=== PATIENT | female | born 1950 | race African-American/Black ===

== ENCOUNTER 2018-10-30 09:00 | Outpatient (CLI) | payer OTHER | END 2018-10-30 10:00 | disposition home or self-care (01) | LOC: D.MAMMO 09:00 | PROVIDERS: ATTEND Family Medicine | DX: Z12.31 Encounter for screening mammogram for malignant neoplasm of breast (principal) ==

== ENCOUNTER 2018-12-21 08:00 | Outpatient (CLI) | payer OTHER | END 2018-12-21 09:00 | disposition home or self-care (01) | LOC: D.MAMMO 08:00 | PROVIDERS: ATTEND Family Medicine | DX: R92.8 Other abnormal and inconclusive findings on diagnostic imaging of breast (principal) ==

== ENCOUNTER → 2019-06-08 08:35 | Outpatient (CLI) | payer OTHER | END | disposition home or self-care (01) | LOC: D.US 08:30 | PROVIDERS: ATTEND Internal Medicine Gastroenterology | DX: K76.0 Fatty (change of) liver, not elsewhere classified (principal) ==

== ENCOUNTER 2020-03-31 10:16 | Inpatient (IN) | payer MEDICARE ==
[2020-03-31] VITALS (7 sets, daily range): BP systolic 112–141; BP diastolic 49–69; BMI 31.3
[~2020-03-31] VITALS: Ht 152.4 cm; Wt 72.6 kg
[2020-03-31] MEDS ORDERED: TIROSINT112 MCG PO (10:35)
[2020-03-31] MEDS ORDERED: LANTUS INS100 UNITS/ SC (10:35)
[2020-03-31] MEDS ORDERED: NORVASC10 MG PO (10:36)
[2020-03-31] MEDS ORDERED: ZESTRIL10 MG PO (10:36)
[2020-03-31 10:58] LABS: HEMATOCRIT 39.5 % (36.0-48.0); HEMOGLOBIN 13.4 g/dL (12-16); IMMATURE GRANULOCYTES 0.4 % (0-5); MCH 29.8 pg (26.0-34.0); MCHC 33.9 g/dL (31.0-37.0); MEAN PLATELET VOLUME 10.3 fL (7.4-10.4); PLATELET COUNT 278 10x3/uL (130-400); RBC 4.49 10x6/uL (4.00-5.40); RDW 13.5 % (11.5-14.5); WBC 7.3 10x3/uL (4.8-10.8)
[2020-03-31 11:17] LABS: INR 0.97 (0.85-1.17); PROTIME 12.9 SECONDS (11.6-15.0)
[2020-03-31 11:18] LABS: APTT 31.5 SECONDS (22.8-39.4)
[2020-03-31 11:22] LABS: ALKALINE PHOSPHATASE 113 U/L (30-120); ALT (SGPT) 57 U/L (10-68); BILIRUBIN - TOTAL 0.74 mg/dL (0.2-1.3); CALC OSMOLALITY 261 mosm/kg (275-300); CALCIUM 9.2 mg/dL (8.5-10.1); CARBON DIOXIDE 24.9 mmol/L (21.0-32.0); CHLORIDE - SERUM 91 mmol/L (98-107); CKMB 3.1 U/L (0.0-3.6); CREATININE - SERUM 1.4 mg/dL (0.6-1.3); GLUCOSE 91 mg/dL (74-106); PRO BNP 17 pg/mL (0-125); PROTEIN - SERUM 8.3 g/dL (6.4-8.2); SODIUM 130 mmol/L (136-145); TROPONIN-I < 0.017 ng/mL (0.000-0.060); UREA NITROGEN 15 mg/dL (7-18); eGFR NON AFRICAN AMERICAN 40 mL/min (90-120)
[2020-03-31 11:24] LABS: CREATINE KINASE 915 UL (21-215)
[2020-03-31 11:25] LABS: POTASSIUM - SERUM 2.7 mmol/L (3.5-5.1)
[2020-03-31 12:02] LABS: ANISOCYTOSIS OCC; LYMPHOCYTES 31 % (15-50); MONOCYTES 8 % (2-11); NEUTROPHILS 60 % (40-80); PLATELET ESTIMATE NORMAL
[2020-03-31 12:51] LABS: C-REACTIVE PROTEIN 15.8 mg/dL (0.0-0.9)
--- NOTE | 2020-03-31 14:42 | NUR ---
RECEIVED PT FROM ER VIA WHEELCHAIR. PT AAO AND UP AD [place]. DROPLET ISO FOR COVID. POTASSIUM CHLORIDE INFUSING VIA R.FOR PIV. RR EVEN AND UNLABORED ON 3L 02. VSS AND WNL. PT DENIES ANY NEEDS AT THIS TIME. NO S/S OF DISTRESS NOTED. WILL CTM.
[2020-03-31 18:15] LABS: BILIRUBIN NEGATIVE (NEGATIVE); KETONE SMALL mg/dL (NEGATIVE); NITRITE NEGATIVE (NEGATIVE); UROBILINOGEN NORMAL (NORMAL)
--- NOTE | 2020-03-31 19:30 | NUR ---
PT IN BED, AAO X 3, RESP EVEN AND UNLABORED. NO DISTRESS NOTED, CL IN REACH, SR UP X 2.
--- NOTE | 2020-04-01 00:05 | NUR ---
I have reviewed this patient and I concur with the Shift Assessment completed by the Licensed Practical Nurse today this shift.
[2020-04-01 04:30] VITALS: BP 132/71
[2020-04-01 04:59] LABS: BASOPHILS 0 % (0-2); EOSINOPHILS 0 % (0-7); HEMATOCRIT 36.3 % (36.0-48.0); HEMOGLOBIN 12.1 g/dL (12-16); IMMATURE GRANULOCYTES 0.7 % (0-5); LYMPHOCYTES 18.5 % (15-50); MCH 29.3 pg (26.0-34.0); MCHC 33.3 g/dL (31.0-37.0); MCV 87.9 fL (80.0-100.0); NEUTROPHILS 77.8 % (40-80); PLATELET COUNT 319 10x3/uL (130-400); RBC 4.13 10x6/uL (4.00-5.40); RDW 13.4 % (11.5-14.5); WBC 5.6 10x3/uL (4.8-10.8)
[2020-04-01 05:26] LABS: ANION GAP 14.9 mmol/L (8-16); BILIRUBIN - TOTAL 0.45 mg/dL (0.2-1.3); CALCIUM 8.7 mg/dL (8.5-10.1); CARBON DIOXIDE 26.2 mmol/L (21.0-32.0); MAGNESIUM - SERUM 2.2 mg/dL (1.8-2.4); PROTEIN - SERUM 7.1 g/dL (6.4-8.2)
[2020-04-01 05:27] LABS: POTASSIUM - SERUM 4.1 mmol/L (3.5-5.1)
[2020-04-01 08:45] VITALS: BP 134/71
[2020-04-01 12:39] VITALS: BP 118/59
[2020-04-01 16:38] VITALS: BP 116/65
--- NOTE | 2020-04-01 18:33 | NUR ---
PT LAYING SUPINE, RR EVEN AND UNLABORED ON 2L NC. DENIES NEEDS OR PAIN AT THIS TIME. CALL LIGHT WITHIN REACH. WATER RECIEVED PER REQUEST. BED IN LOWEST POSITION. WILL CONTINUE TO MONITOR.
--- NOTE | 2020-04-01 19:30 | NUR ---
PT IN BED, AAO X 3, RESP EVEN AND UNLABORED. NO DISTRESS NOTED, CL IN REACH.
[2020-04-01 20:00] VITALS: BP 109/48
--- NOTE | 2020-04-02 03:43 | NUR ---
I have reviewed this patient and I concur with the Shift Assessment completed by the Licensed Practical Nurse today this shift.
[2020-04-02 04:00] VITALS: BP 119/58
[2020-04-02 06:43] LABS: BASOPHILS 0.1 % (0-2); EOSINOPHILS 0 % (0-7); HEMATOCRIT 34.9 % (36.0-48.0); HEMOGLOBIN 11.5 g/dL (12-16); IMMATURE GRANULOCYTES 1.5 % (0-5); LYMPHOCYTES 10.7 % (15-50); MCH 29.2 pg (26.0-34.0); MCV 88.6 fL (80.0-100.0); MEAN PLATELET VOLUME 10.8 fL (7.4-10.4); MONOCYTES 8.1 % (2-11); NEUTROPHILS 79.6 % (40-80); PLATELET COUNT 348 10x3/uL (130-400); RBC 3.94 10x6/uL (4.00-5.40); RDW 13.5 % (11.5-14.5)
[2020-04-02 06:46] LABS: WBC 13.8 10x3/uL (4.8-10.8)
[2020-04-02 07:09] LABS: ANION GAP 13.6 mmol/L (8-16); BILIRUBIN - TOTAL 0.24 mg/dL (0.2-1.3); CALCIUM 8.6 mg/dL (8.5-10.1); CARBON DIOXIDE 26.2 mmol/L (21.0-32.0); CREATININE - SERUM 0.9 mg/dL (0.6-1.3); MAGNESIUM - SERUM 2.1 mg/dL (1.8-2.4); POTASSIUM - SERUM 3.8 mmol/L (3.5-5.1); PROTEIN - SERUM 6.7 g/dL (6.4-8.2)
[2020-04-02 08:36] VITALS: BP 120/57
[2020-04-02 12:46] VITALS: BP 110/66
[2020-04-02 15:00] VITALS: BP 101/58
[2020-04-02 21:43] VITALS: BP 124/61
[2020-04-03 00:08] VITALS: BP 118/56
--- NOTE | 2020-04-03 03:53 | NUR ---
I have reviewed this patient and I concur with the Shift Assessment completed by the Licensed Practical Nurse today this shift.
[2020-04-03 04:14] VITALS: BP 113/52
[2020-04-03 06:44] LABS: ALBUMIN 3.2 g/dL (3.4-5.0); BILIRUBIN - TOTAL 0.39 mg/dL (0.2-1.3); CARBON DIOXIDE 27.3 mmol/L (21.0-32.0); POTASSIUM - SERUM 4.3 mmol/L (3.5-5.1); PROTEIN - SERUM 6.9 g/dL (6.4-8.2)
[2020-04-03 06:45] LABS: BASOPHILS 0.1 % (0-2); EOSINOPHILS 0 % (0-7); HEMATOCRIT 34.8 % (36.0-48.0); HEMOGLOBIN 11.6 g/dL (12-16); IMMATURE GRANULOCYTES 4.3 % (0-5); LYMPHOCYTES 11.2 % (15-50); MCH 29.4 pg (26.0-34.0); MCHC 33.3 g/dL (31.0-37.0); MCV 88.3 fL (80.0-100.0); MEAN PLATELET VOLUME 10.8 fL (7.4-10.4); MONOCYTES 5.2 % (2-11); NEUTROPHILS 79.2 % (40-80); PLATELET COUNT 348 10x3/uL (130-400); RBC 3.94 10x6/uL (4.00-5.40); RDW 13.7 % (11.5-14.5); WBC 11.4 10x3/uL (4.8-10.8)
[2020-04-03 07:58] VITALS: BP 126/62
[2020-04-03 11:51] VITALS: BP 119/56
[2020-04-03 15:13] VITALS: BP 128/66
--- NOTE | 2020-04-03 19:30 | NUR ---
RECEIVED REPORT, WILL ASSUME CARE OF PT, PT IS WATCHING TV, DENIES ANY NEEDS, BED IS LOW, SRX2, CALL LIGHT IN REACH, WILL CONTINUE PLAN OF CARE
[2020-04-03 21:40] VITALS: BP 121/67
[2020-04-04] VITALS: BP 132/52
[2020-04-04 04:00] VITALS: BP 132/68
[2020-04-04 05:31] LABS: ALBUMIN 3.4 g/dL (3.4-5.0); BILIRUBIN - TOTAL 0.42 mg/dL (0.2-1.3); CALCIUM 8.9 mg/dL (8.5-10.1); CARBON DIOXIDE 27.9 mmol/L (21.0-32.0); CREATININE - SERUM 0.9 mg/dL (0.6-1.3); MAGNESIUM - SERUM 1.9 mg/dL (1.8-2.4); POTASSIUM - SERUM 4.9 mmol/L (3.5-5.1); PROTEIN - SERUM 7.1 g/dL (6.4-8.2)
[2020-04-04 05:32] LABS: BASOPHILS 0.1 % (0-2); EOSINOPHILS 0 % (0-7); HEMATOCRIT 37.2 % (36.0-48.0); HEMOGLOBIN 12.5 g/dL (12-16); IMMATURE GRANULOCYTES 6.6 % (0-5); LYMPHOCYTES 11.7 % (15-50); MCH 29.6 pg (26.0-34.0); MCHC 33.6 g/dL (31.0-37.0); MCV 87.9 fL (80.0-100.0); MEAN PLATELET VOLUME 10.9 fL (7.4-10.4); MONOCYTES 7.6 % (2-11); PLATELET COUNT 366 10x3/uL (130-400); RBC 4.23 10x6/uL (4.00-5.40); RDW 13.9 % (11.5-14.5)
--- NOTE | 2020-04-04 07:00 | NUR ---
RECIEVED REPORT. ASSUMED CARE OF PATIENT. PATIENT REMAINS IN ISOLATION FOR COVID 19.
[2020-04-04 08:00] VITALS: BP 137/73
--- NOTE | 2020-04-04 08:26 | NUR ---
SPECIAL DIET REQUEST PLACED FOR PATIENT AT THIS TIME.
--- NOTE | 2020-04-04 10:41 | NUR ---
ASSISTED TO TAPE IV SITE UP AT THIS TIME. PATIENT IN SHOWER AT THIS TIME. NO DISTRESS.
--- NOTE | 2020-04-04 11:05 | NUR ---
2ND UNIT OF FFP INITIATED AT THIS TIME. PATIENT TOLERATING TRANSFUSION WELL. NO DISTRESS. PATIENT ALSO GIVEN CELL PHONE THAT WAS BROUGHT AND DROPPED OFF FOR HER. NO DISTRESS.
--- NOTE | 2020-04-04 11:15 | NUR ---
FSBS 367. 16 UNITS HUMALOG ADMINISTERED PER SLIDING SCALE.
--- NOTE | 2020-04-04 12:12 | NUR ---
PATIENT TRANSFUSION COMPLETE. VSS. TOLERATED PLASMA TRANSFUSION WELL. 121/62, 80. CALL LIGHT WITHIN REACH. NO DISTRESS.
--- NOTE | 2020-04-04 12:18 | NUR ---
TELEMETRY REAPPLIED AT THIS TIME. NO DISTRESS.
--- NOTE | 2020-04-04 12:51 | NUR ---
INCENTIVE SPIROMETER PROVIDED TO PATIENT AND INSTRUCTIONS ON USE. VERBALIZED UNDERSTANDING OF ALL INSTRUCTIONS.
[2020-04-04 15:00] VITALS: BP 117/59
--- NOTE | 2020-04-04 16:05 | NUR ---
FSBS 198. 8 UNITS HUMALOG ADMINISTERED PER SLIDING SCALE. NO DISTRESS.
--- NOTE | 2020-04-04 19:00 | NUR ---
REPORT RECEIVED, WILL CONTINUE POC. PATIENT IS AAOX4, SITTING UP IN BED. NO S/S OF DISTRESS OBSERVED, RR EVEN AND UNLABORED ON ROOM AIR. PIV TO RT FA, PATENT, INFUSING NS 40KCL. PATIENT DENIES NEEDS AT THIS TIME. CL IN REACH, BED LOCKED AND LOWERED. COVID19 PRECAUTIONS MAINTAINTED. WILL CTM.
[2020-04-04 20:00] VITALS: BP 126/52
[2020-04-05] VITALS: BP 124/61
[2020-04-05 04:00] VITALS: BP 140/72
[2020-04-05 06:31] LABS: BASOPHILS 0.1 % (0-2); EOSINOPHILS 0 % (0-7); HEMATOCRIT 38.2 % (36.0-48.0); HEMOGLOBIN 12.9 g/dL (12-16); IMMATURE GRANULOCYTES 6.5 % (0-5); LYMPHOCYTES 20.5 % (15-50); MCH 29.7 pg (26.0-34.0); MCHC 33.8 g/dL (31.0-37.0); MEAN PLATELET VOLUME 10.7 fL (7.4-10.4); MONOCYTES 9.8 % (2-11); NEUTROPHILS 63.1 % (40-80); PLATELET COUNT 390 10x3/uL (130-400); RBC 4.34 10x6/uL (4.00-5.40); RDW 13.9 % (11.5-14.5); WBC 13.5 10x3/uL (4.8-10.8)
[2020-04-05 06:59] LABS: ALBUMIN 3.6 g/dL (3.4-5.0); ANION GAP 11.3 mmol/L (8-16); BILIRUBIN - TOTAL 0.34 mg/dL (0.2-1.3); CALCIUM 9.3 mg/dL (8.5-10.1); MAGNESIUM - SERUM 2.2 mg/dL (1.8-2.4); POTASSIUM - SERUM 4.3 mmol/L (3.5-5.1); PROTEIN - SERUM 7.3 g/dL (6.4-8.2)
[2020-04-05 07:48] VITALS: BP 111/61
[2020-04-05 10:27] VITALS: BP 140/80
[2020-04-05 13:54] VITALS: Ht 152.4 cm; Wt 72.6 kg
[2020-04-05 15:15] VITALS: BP 121/67
[2020-04-05 20:00] VITALS: BP 128/66
--- NOTE | 2020-04-05 20:00 | NUR ---
REPORT RECEIVED, WILL CONT POC. PT UP IN BED A&O. NO S/S OF DISTRESS. PT REPORTS "FEELING MUCH BETTER TODAY". RR EVEN AND UNLABORED ON RA. REQUESTS WATER, JELLO, AND CRACKERS, BROUGHT TO BEDSIDE. PT DENIES OTHER NEEDS AT THIS TIME. CALL LIGHT IN REACH, BED LOCKED AND LOWERED. ASSESSMENT COMPLETED AT THIS TIME. WILL CONT TO MONITOR.
[2020-04-06 04:00] VITALS: BP 136/69
[2020-04-06 07:01] LABS: HEMATOCRIT 37.4 % (36.0-48.0); HEMOGLOBIN 12.5 g/dL (12-16); LYMPHOCYTES 13.7 % (15-50); MCH 29.8 pg (26.0-34.0); MCHC 33.4 g/dL (31.0-37.0); MCV 89.3 fL (80.0-100.0); MEAN PLATELET VOLUME 10.7 fL (7.4-10.4); PLATELET COUNT 315 10x3/uL (130-400); RBC 4.19 10x6/uL (4.00-5.40); RDW 14.5 % (11.5-14.5); WBC 12.6 10x3/uL (4.8-10.8)
[2020-04-06 07:18] VITALS: BP 125/62
[2020-04-06 07:27] LABS: ALBUMIN 3.3 g/dL (3.4-5.0); ANION GAP 14.4 mmol/L (8-16); BILIRUBIN - TOTAL 0.52 mg/dL (0.2-1.3); CALCIUM 9.1 mg/dL (8.5-10.1); CARBON DIOXIDE 26.4 mmol/L (21.0-32.0); POTASSIUM - SERUM 4.8 mmol/L (3.5-5.1); PROTEIN - SERUM 6.8 g/dL (6.4-8.2)
[2020-04-06 10:39] VITALS: BP 126/65
[2020-04-06] MEDS ORDERED: OMNICEF300 MG PO (14:22)
[2020-04-06] MEDS ORDERED: DECADRON4 MG PO (14:22)
[2020-04-06] MEDS ORDERED: MUCINEX DM ER1 EAC1 PO (14:22)
[2020-04-06] MEDS ORDERED: TESSALON PERLE100 MG PO (14:22)
[2020-04-06] MEDS ORDERED: ALBUTEROL SULF8.5 GM INH (14:23)
--- NOTE | 2020-04-06 15:02 | MORECARE ---
CASE MANAGEMENT DISCHARGE SUMMARY PATIENT: JENNIE HINSON UNIT: [id number] ADM DATE: 03/31/20 AGE: 70 : 52 SEX: F ROOM/BED: D.2133 AUTHOR: ANUPAMA MCCRACKEN PHYSICIAN: REFERRING PHYSICIAN: GIUSEPPE GOMEZ DO DATE OF SERVICE: 04/06/20 Discharge Plan Patient Name: JENNIE HINSON [facility] [facility] 1950 Planned Disposition: Home Anticipated Discharge Date: 04/06/20 Discharge Date: Expected LOS: 6 Initial Reviewer: [email or web address] Initial Review Date: 03/31/2020 Generated: 04/06/20 4:01 pm Patient Name: JENNIE HINSON Page [phone] at 1502 All edits/amendments must be made on the electronic document DICTATION DATE: 04/06/20 1501 NEEDLE VALVE OPERATOR: CANDE 04/06/20 1501 RPT#: [id number] DC DATE: STATUS: ADM IN [facility] [address] [place] [address] END OF REPORT
--- NOTE | 2020-04-06 16:00 | MORECARE ---
CASE MANAGEMENT DISCHARGE SUMMARY PATIENT: JENNIE HINSON UNIT: [id number] ADM DATE: 03/31/20 AGE: 70 : 52 SEX: F ROOM/BED: D.2133 AUTHOR: ANUPAMA MCCRACKEN PHYSICIAN: REFERRING PHYSICIAN: GIUSEPPE GOMEZ DO DATE OF SERVICE: 04/06/20 Discharge Plan Patient Name: JENNIE HINSON [facility] : 1950 Planned Disposition: Home Anticipated Discharge Date: 04/06/20 Discharge Date: Expected LOS: 6 Initial Reviewer: [email or web address] Initial Review Date: 03/31/2020 Generated: 04/06/20 4:59 pm DCPIA - Discharge Planning Initial Assessment Updated by [email or web address]: Dianne Funes on 04/06/20 3:54 pm * Is the patient Alert and Oriented? Yes * How many steps to enter\exit or inside your home? 5 w/o rail * PCP Dr. Valencia * Pharmacy [address] * Preadmission Environment Home with Family * ADLs Independent * Equipment None * Other Equipment NA * List name and contact numbers for known caregivers / representatives who currently or will assist patient after discharge: Filippo Hinson (spouse) [phone] * Verbal permission to speak to the caregivers and representatives has been obtained from the patient. Yes * Community resources currently utilized None * Please name any agencies selected above. NA * Additional services required to return to the preadmission environment? No * Can the patient safely return to the preadmission environment? Yes * Has this patient been hospitalized within the prior 30 days at any hospital? No Last DP export: 04/06/20 2:02 pm Patient Name: JENNIE HINSON Page [id number] at 1600 All edits/amendments must be made on the electronic document DICTATION DATE: 04/06/20 1559 MANAGER AVIATION: CANDE 04/06/20 1559 RPT#: [id number] DC DATE: STATUS: ADM IN [facility] [address] [place] [address] END OF REPORT
--- NOTE | 2020-04-06 16:08 | MORECARE ---
CASE MANAGEMENT DISCHARGE SUMMARY PATIENT: JENNIE HINSON UNIT: [id number] ADM DATE: 03/31/20 AGE: 70 : 52 SEX: F ROOM/BED: D.1253 AUTHOR: KAYKAY,DOC PHYSICIAN: REFERRING PHYSICIAN: GIUSEPPE GOMEZ DO DATE OF SERVICE: 04/06/20 Discharge Plan Patient Name: JENNIE HINSON Facility: [facility]:[place] : 1950 Planned Disposition: Home Anticipated Discharge Date: 04/06/20 Discharge Date: Expected LOS: 6 Initial Reviewer: [email or web address] Initial Review Date: 03/31/2020 Generated: 04/06/20 5:08 pm Comments DCP- Discharge Planning Updated by [email or web address]: Dianne Funes on 04/06/20 3:[address] CM met with patient to discuss initial discharge planning. Patient is in agreement to proceed with completion of the assessment. Patient reports that she lives at home independently with her , Filippo Hinson ([phone]. Patient is alert/oriented. Stairs/steps: 5 w/rails. PCP: Dr. Valencia. Pharmacy: [address] Patient states she has been able to obtain all of her prescribed medications. HHS: Declined. DME: None. Patient gives permission to speak with family members/care givers. Patient is Independent with all ADL's, medication management JEWELRY RACKER. CM discussed the availability of HH, Rehab, SNF, OP Therapy, DME services. Patient denies the need for additional services at this time and feels safe returning to previous environment. Patient denies hospitalization within the past 30 days. Patient denies the use of community resources JEWELRY RACKER. Transportation at time of discharge: Filippo Hinson. CM will assist PRN with any DC needs/plans. DCPIA - Discharge Planning Initial Assessment Updated by [email or web address]: Dianne Funes on 04/06/20 3:54 pm * Is the patient Alert and Oriented? Yes * How many steps to enter\exit or inside your home? 5 w/o rail * PCP Dr. Valencia * Pharmacy [address] * Preadmission Environment Home with Family * ADLs Independent * Equipment None * Other Equipment NA * List name and contact numbers for known caregivers / representatives who currently or will assist patient after discharge: Filippo Hinson (spouse) [phone] * Verbal permission to speak to the caregivers and representatives has been obtained from the patient. Yes * Community resources currently utilized None * Please name any agencies selected above. NA * Additional services required to return to the preadmission environment? No * Can the patient safely return to the preadmission environment? Yes * Has this patient been hospitalized within the prior 30 days at any hospital? No Last DP export: 04/06/20 3:00 pm Patient Name: JENNIE HINSON Page [phone] at 1608 All edits/amendments must be made on the electronic document DICTATION DATE: 04/06/201607 INCOME TAX PREPARER: CANDE 04/06/201607 RPT#: [id number] DC DATE: STATUS: ADM IN [facility] [address] [place] [address] END OF REPORT
--- NOTE | 2020-04-06 16:53 | NUR ---
PATIENT DISCHARGE INSTRUCTIONS DISCUSSED WITH HER AND QUESTIONS ANSWERED, TO EXIT VIA WHEELCHAIR TO DISCHARGE HOME WITH .
--- NOTE | 2020-04-06 17:07 | MORECARE ---
CASE MANAGEMENT DISCHARGE SUMMARY PATIENT: JENNIE HINSON UNIT: [id number] ADM DATE: 03/31/20 AGE: 70 : 52 SEX: F ROOM/BED: D.1343 AUTHOR: KAYKAY,DOC PHYSICIAN: REFERRING PHYSICIAN: GIUSEPPE GOMEZ DO DATE OF SERVICE: 04/06/20 Discharge Plan Patient Name: JENNIE HINSON Facility: [facility]:[place] : 1950 Planned Disposition: Home Anticipated Discharge Date: 04/06/20 Discharge Date: 04/06/2020 Expected LOS: 6 Initial Reviewer: [email or web address] Initial Review Date: 03/31/2020 Generated: 04/06/20 6:07 pm Comments DCP- Discharge Planning Updated by [email or web address]: Dianne Funes on 04/06/20 3:[address] CM met with patient to discuss initial discharge planning. Patient is in agreement to proceed with completion of the assessment. Patient reports that she lives at home independently with her , Filippo Hinson ([phone]. Patient is alert/oriented. Stairs/steps: 5 w/rails. PCP: Dr. Valencia. Pharmacy: [address] Patient states she has been able to obtain all of her prescribed medications. HHS: Declined. DME: None. Patient gives permission to speak with family members/care givers. Patient is Independent with all ADL's, medication management [employer]IVER. CM discussed the availability of HH, Rehab, SNF, OP Therapy, DME services. Patient denies the need for additional services at this time and feels safe returning to previous environment. Patient denies hospitalization within the past 30 days. Patient denies the use of community resources [employer]. Transportation at time of discharge: Filippo Hinson. CM will assist PRN with any DC needs/plans. DCPIA - Discharge Planning Initial Assessment Updated by [email or web address]: Dianne Funes on 04/06/20 3:54 pm * Is the patient Alert and Oriented? Yes * How many steps to enter\exit or inside your home? 5 w/o rail * PCP Dr. Valencia * Pharmacy [address] * Preadmission Environment Home with Family * ADLs Independent * Equipment None * Other Equipment NA * List name and contact numbers for known caregivers / representatives who currently or will assist patient after discharge: Filippo Hinson (spouse) [phone] * Verbal permission to speak to the caregivers and representatives has been obtained from the patient. Yes * Community resources currently utilized None * Please name any agencies selected above. NA * Additional services required to return to the preadmission environment? No * Can the patient safely return to the preadmission environment? Yes * Has this patient been hospitalized within the prior 30 days at any hospital? No Coverage Notice Reviewer: [email or web address] Funes Notice Issued Date-Time: 04/06/2020 16:12 Notice Type: IM Discharge Notice Notice Delivered To: Patient Relationship to Patient: Self Rn Oncology Clinical Name: Jennie Hinson Delivery Method: PHONE - Phone Priscilla Days: Prior Verbal Notification: Recipient Understood Notice: Yes Recipient Signature: Med Rec Note Co-signed by Attending: Coverage Notice Comment: DC IMM explained to patient, signed by per telephone permission, provided to patient's DC paperwork. Reviewer: [email or web address] Bernard Funes Notice Issued Date-Time: 04/06/2020 16:12 Notice Type: Patient Choice Letter Notice Delivered To: Patient Relationship to Patient: Self Rn Oncology Clinical Name: Jennie Hinson Delivery Method: PHONE - Phone Priscilla Days: Prior Verbal Notification: Recipient Understood Notice: Yes Recipient Signature: Med Rec Note Co-signed by Attending: Coverage Notice Comment: Patient declined services for HHS, SNF, Rehab via phone. Patient choice declination via phone after explained to patient. Original to patient DC packet, copy to chart. Last DP export: 04/06/20 3:08 pm Patient Name: JENNIE HINSON Page [phone] at 1707 All edits/amendments must be made on the electronic document DICTATION DATE: 04/06/201706 MEDICAL TRANSPORT SPECIALIST: CANDE 04/06/20 170 RPT#: [id number] DC DATE:04/06/20 STATUS: DIS IN [facility] [address] [place] [address] END OF REPORT
== END 2020-04-06 16:55 | disposition home or self-care (01) | DRG 177 ==
LOC: D.ER 10:16 → D.M2 12:24
PROVIDERS: Emergency Medicine; Family Medicine; ADMIT Family Medicine; ATTEND Family Medicine
PROC: XW033E5 Introduction of Remdesivir Anti-infective into Peripheral Vein, Percutaneous Approach, New Technology Group 5 (ICD-10-PCS; principal; 2020-03-31)
DX: U07.1 COVID-19 (principal); J12.89 Other viral pneumonia; J96.01 Acute respiratory failure with hypoxia; E87.1 Hypo-osmolality and hyponatremia; I10 Essential (primary) hypertension; E87.6 Hypokalemia; R74.0 Nonspecific elevation of levels of transaminase and lactic acid dehydrogenase [LDH]; E03.9 Hypothyroidism, unspecified

== ENCOUNTER 2021-01-10 09:29 | Observation (INO) | payer OTHER ==
[~2021-01-10] VITALS: Ht 152.4 cm; Wt 74.1 kg
[~2021-01-10 09:29] MED LIST: ALBUTEROL SULF8.5 GM INH; DECADRON4 MG PO; LANTUS INS100 UNITS/ SC; MUCINEX DM ER1 EAC1 PO; NORVASC10 MG PO; OMNICEF300 MG PO; TESSALON PERLE100 MG PO; TIROSINT112 MCG PO; ZESTRIL10 MG PO
[2021-01-10 09:42] VITALS: Ht 152.4 cm; Wt 74.1 kg
[2021-01-10 10:15] LABS: BASOPHILS 0.4 % (0-2); EOSINOPHILS 0.9 % (0-7); HEMATOCRIT 41.9 % (36.0-48.0); HEMOGLOBIN 13.6 g/dL (12-16); LYMPHOCYTES 19.6 % (15-50); MCH 29.1 pg (26.0-34.0); MCHC 32.5 g/dL (31.0-37.0); MCV 89.5 fL (80.0-100.0); MEAN PLATELET VOLUME 9.3 fL (7.4-10.4); MONOCYTES 6.8 % (2-11); NEUTROPHILS 72.3 % (40-80); RBC 4.68 10x6/uL (4.00-5.40); RDW 14.2 % (11.5-14.5); WBC 7.4 10x3/uL (4.8-10.8)
[2021-01-10 10:17] LABS: PLATELET COUNT 182 10x3/uL (130-400)
[2021-01-10 10:28] LABS: CALC OSMOLALITY 284 mosm/kg (275-300); CALCIUM 9.3 mg/dL (8.5-10.1); CARBON DIOXIDE 29.5 mmol/L (21.0-32.0); CHLORIDE - SERUM 102 mmol/L (98-107); CREATININE - SERUM 0.8 mg/dL (0.6-1.3); GLUCOSE 195 mg/dL (74-106); POTASSIUM - SERUM 3.8 mmol/L (3.5-5.1); SODIUM 140 mmol/L (136-145); UREA NITROGEN 14 mg/dL (7-18); eGFR NON AFRICAN AMERICAN 75 mL/min (90-120)
[2021-01-10 10:35] LABS: ALBUMIN 4.1 g/dL (3.4-5.0); ALKALINE PHOSPHATASE 159 U/L (30-120); ALT (SGPT) 26 U/L (10-68); BILIRUBIN - TOTAL 0.69 mg/dL (0.2-1.3); PROTEIN - SERUM 7.5 g/dL (6.4-8.2)
[2021-01-10 10:59] LABS: APTT 29.5 SECONDS (22.8-39.4); INR 1.01 (0.85-1.17); PROTIME 12.3 SECONDS (11.6-15.0)
[2021-01-10 11:10] LABS: CKMB 1.3 U/L (0.0-3.6); CREATINE KINASE 173 UL (21-215); TROPONIN-I < 0.017 ng/mL (0.000-0.060)
[2021-01-10 13:42] VITALS: BP 146/76
[2021-01-10 14:34] LABS: CKMB 1.1 U/L (0.0-3.6); CREATINE KINASE 161 UL (21-215)
[2021-01-10 14:37] LABS: TROPONIN-I < 0.017 ng/mL (0.000-0.060)
[2021-01-10 19:41] LABS: CKMB 0.9 U/L (0.0-3.6); CREATINE KINASE 145 UL (21-215); TROPONIN-I < 0.017 ng/mL (0.000-0.060)
[2021-01-10 21:20] VITALS: BP 156/66
[2021-01-10 22:29] VITALS: BP 142/57
[2021-01-10 23:29] VITALS: BP 136/65
[2021-01-11 00:30] VITALS: BP 156/62
[2021-01-11 01:29] VITALS: BP 164/65
[2021-01-11 01:56] LABS: CREATINE KINASE 147 UL (21-215)
[2021-01-11 02:06] LABS: TROPONIN-I < 0.017 ng/mL (0.000-0.060)
[2021-01-11 03:32] VITALS: BP 168/75
[2021-01-11 05:32] VITALS: BP 162/71
[2021-01-11 06:18] LABS: BASOPHILS 0.3 % (0-2); EOSINOPHILS 1.5 % (0-7); HEMATOCRIT 40.2 % (36.0-48.0); HEMOGLOBIN 13.4 g/dL (12-16); LYMPHOCYTES 23.3 % (15-50); MCH 29.4 pg (26.0-34.0); MCHC 33.2 g/dL (31.0-37.0); MCV 88.5 fL (80.0-100.0); MEAN PLATELET VOLUME 9.5 fL (7.4-10.4); MONOCYTES 8.1 % (2-11); NEUTROPHILS 66.8 % (40-80); PLATELET COUNT 193 10x3/uL (130-400); RBC 4.55 10x6/uL (4.00-5.40); WBC 6.4 10x3/uL (4.8-10.8)
[2021-01-11 06:52] LABS: ALBUMIN 3.9 g/dL (3.4-5.0); ANION GAP 11.3 mmol/L (8-16); BILIRUBIN - TOTAL 0.98 mg/dL (0.2-1.3); CARBON DIOXIDE 31.6 mmol/L (21.0-32.0); CREATININE - SERUM 0.9 mg/dL (0.6-1.3); POTASSIUM - SERUM 3.9 mmol/L (3.5-5.1); PROTEIN - SERUM 6.9 g/dL (6.4-8.2)
--- NOTE | 2021-01-11 08:14 | NUR ---
EULALIA CRAIG AWARE OF CONSULT.
[2021-01-11 19:28] VITALS: BP 165/82
[2021-01-11 23:52] VITALS: BP 110/58
--- NOTE | 2021-01-12 01:00 | NUR ---
REPORT RECEIVED FROM LUPE SANTAMARIA AT THIS TIME. PT RESTING IN POSITION OF COMFORT. DENIES CURRENT NEEDS.
--- NOTE | 2021-01-12 02:31 | NUR ---
PT WINCING IN PAIN, AAO. CALL LIGHT WITHIN REACH. PRN PAIN MEDICATIONS GIVEN SEE EMAR. DENIES FURTHER NEEDS.
--- NOTE | 2021-01-12 04:16 | NUR ---
PT RESTING SUPINE POSITION. RESPIRATIONS EVEN AND NON LABORED.
[2021-01-12 06:16] VITALS: BP 118/53
[2021-01-12 08:23] LABS: BASOPHILS 0.6 % (0-2); EOSINOPHILS 1.7 % (0-7); HEMATOCRIT 41.4 % (36.0-48.0); HEMOGLOBIN 13.5 g/dL (12-16); LYMPHOCYTES 23.1 % (15-50); MCH 29.3 pg (26.0-34.0); MCHC 32.7 g/dL (31.0-37.0); MCV 89.3 fL (80.0-100.0); MEAN PLATELET VOLUME 9.4 fL (7.4-10.4); MONOCYTES 8.1 % (2-11); NEUTROPHILS 66.5 % (40-80); PLATELET COUNT 204 10x3/uL (130-400); RBC 4.63 10x6/uL (4.00-5.40); RDW 14.4 % (11.5-14.5); WBC 5.8 10x3/uL (4.8-10.8)
[2021-01-12 08:44] LABS: ALBUMIN 3.6 g/dL (3.4-5.0); ANION GAP 12.2 mmol/L (8-16); BILIRUBIN - TOTAL 0.81 mg/dL (0.2-1.3); CALCIUM 8.7 mg/dL (8.5-10.1); CARBON DIOXIDE 30.5 mmol/L (21.0-32.0); CREATININE - SERUM 1.1 mg/dL (0.6-1.3); POTASSIUM - SERUM 3.7 mmol/L (3.5-5.1)
[2021-01-12] MEDS ORDERED: PROTONIX40 MG PO (11:13)
[2021-01-12] MEDS ORDERED: HYDROCODON-ACE1 EA10 PO (11:14)
[2021-01-12 14:09] VITALS: BP 136/70
== END 2021-01-12 14:55 | disposition home or self-care (01) ==
LOC: D.ER 09:29 → D.EDHOLD 13:12 → OBSVTIME 13:12 → D.EDHOLD 01-11 08:04
PROVIDERS: Family Medicine; ADMIT Emergency Medicine; ATTEND Emergency Medicine
DX: R07.9 Chest pain, unspecified (principal); M54.9 Dorsalgia, unspecified; I10 Essential (primary) hypertension; Z79.4 Long term (current) use of insulin; M62.830 Muscle spasm of back; E11.65 Type 2 diabetes mellitus with hyperglycemia; E03.9 Hypothyroidism, unspecified